=== PATIENT | male | born 1965 | race Caucasian/White ===

== ENCOUNTER 2022-01-11 17:09 | Emergency (ER) | payer SELFPAY ==
--- NOTE | 2022-01-11 17:15 | RT.EKG_ITS ---
APPROVED REPORT Exam: Resting ECG Reason for Exam: SOB Patient Location: E HR:94 bpm ECG Measurements Heart Rate 94 AXIS AR 135 P 27 QRSd 88 QRS -13 QT 336 T 68 QTc 420 Conclusion Sinus rhythm...normal P axis, V-rate 60- 99
[2022-01-11 17:21] VITALS: BP 148/87; PULSE 95; RESP 20; TEMP 38.3; O2SAT 99
--- NOTE | 2022-01-11 17:30 | DI.RAD_ITS ---
Exam(s) XR PORTABLE CHEST AP EXAM: XR PORTABLE CHEST AP CLINICAL HISTORY: PUI, Cough. TECHNIQUE: 2D digital imaging was performed. COMPARISON: No exams were available for comparison FINDINGS: Single AP portable view. Heart size is upper normal. The mediastinum is not widened. Lungs are clear. No infiltrates nor obvious pleural effusions. IMPRESSION: No acute pulmonary findings on this single AP portable view of the chest. DATA REPOSITORY: RADIATION DOSE DELIVERED:
--- NOTE | 2022-01-11 17:38 | W.ED.GENAD ---
Discharge Plan Disposition Patient Disposition: HOME Condition: Improving Discharge Details Chief Complaint: RespSymp Clinical Impression: COVID-19 Primary Care Provider: None,None ED Provider: Ortiz Angelo Home Meds and New Rx's Prescriptions: No Action No Known Home Meds Discharge Instructions Instructions: Viral Syndrome (ED), COVID-19 (Coronavirus Disease 2019) (ED) Additional Instructions: Home to rest this evening. Continue small, frequent sips of fluids to maintain hydration. Tylenol and ibuprofen as needed for aches, pains, fever Please take the Paxlovid twice daily for 5 days time until gone. Continue to self isolate and mask around others for 5 days time Medical Decision Making 56-year-old male presents with 3 days of cough, congestion, production of sputum. He said body ache, headache, sore throat and chills. He presents to ER with a temp of 38.3, pulse of 95, blood pressure 148/87 and oxygenating 99% on room air. Patient states he had single COVID immunization with [employer]. No known sick contact Concern for viral illness such as COVID versus pneumonia. Patient IV access established, given fluid bolus, acetaminophen and antiemetic. He is referred for blood work and a chest x-ray. COVID test is positive, remainder of laboratories are reassuring. Chest x-ray without focal infiltrate. Discussed with patient use of Paxlovid as I feel it is indicated and appropriate for him. He is willing to take the medication. He is stable and improved after fluids and medicines. He is appropriate for a trial of outpatient HPI General Mode of arrival: ambulatory. Date/Time Provider Initiated Documentation: 01/11/22 17:20. Limitations to Documentation: no limitations. Information obtained by: patient. History of Present Illness 56 year old M presents to the emergency department with the chief complaint of Cough, headache, sore throat for 3 days, described as moderate, and is localized to the head and chest. Patient reports no radiation. Patient started experiencing this day(s) and it has been intermittent. No relieving factors improve symptom(s), No exacerbating factors reported . Patient notes cough, fever/chills, headaches, loss of appetite and nausea/vomiting; denies chest pain, shortness of breath and syncope. Patient did receive the following treatments prior to arrival, none Related Data Home Medications Medication Instructions Recorded Confirmed Unknown [No Known Home Meds] 10/07/14 01/11/22 Allergies Allergy/AdvReac Type Severity Reaction Status Date / Time No Known Allergies Allergy Unverified 01/11/22 17:25 General Stated Complaint: RespSymp [place]: 2 Review of Systems Narrative: 6 systems reviewed and otherwise negative. PFSH All Active Problems (Updated 01/11/22 @ 19:33 by Ortiz Angelo MD) COVID-19 (Acute) Social History Smoking/Tobacco Use Status: Never Smoking risk assessment performed?: Yes Alcohol Intake: never Drug use: Never Substance use type: does not use Do you feel safe at home: Yes Do you feel safe in your relationship?: Yes Exam Narrative Exam Narrative: GEN: awake, alert, oriented 3. Pleasant, well groomed, interactive. HEAD: Normocephalic, atraumatic ENT: Mucous membranes dry, oropharynx unremarkable, External ear exam unremarkable EYES: PERRL, EOMI NECK: Full ROM, no DEVIN, no menigismus CHEST/RESP: Cough noted no wheeze/rhonchi/rales CARDIOVASCULAR: RRR, no murmur, rub abdulaziz. 2+ Rad pulse bilateral ABDOMEN: Soft, nontender, no mass. +Bowel sounds EXT: Full ROM, no edema, no rash Neuro: Grossly normal neurologic exam, conversant, interactive. Psych: Speech fluent, thoughts congruent, affect normal Course Vital Signs Vital signs: Vital Signs Temperature 38.3 C H 01/11/22 17:21 Pulse 95 H 01/11/22 17:21 Respiratory Rate 20 01/11/22 17:21 Blood Pressure 148/87 H 01/11/22 17:21 Pulse Oximetry 99 01/11/22 17:21 Temperature 38.3 C H 01/11/22 17:21 Temperature Source Temporal Artery Scan 01/11/22 17:21 Pulse 95 H 01/11/22 17:21 Respiratory Rate 20 01/11/22 17:21 Respiratory Effort 01/11/22 17:25 Blood Pressure 148/87 H 01/11/22 17:21 Blood Pressure Position Sitting 01/11/22 17:21 Pulse Oximetry 99 01/11/22 17:21 Oxygen Delivery Method Room Air 01/11/22 17:21 Oxygen Flow Rate 0 01/11/22 17:21
[2022-01-11] MEDS: Ondansetron 4 MG/2 ML VIAL IVP (17:57)
[2022-01-11] MEDS: ACETAMINOPHEN 1,000 MG/100 ML BTL 400 MG IVPB (17:57)
[2022-01-11] MEDS: Normal Saline 1,000 ML 1000 ML IV (17:58)
[2022-01-11 18:14] LABS: Influenza A PCR Negative (Negative); Influenza B PCR Negative (Negative); RSV PCR Negative (Negative)
[2022-01-11 18:18] LABS: ALT 26 U/L (16-63); AST 20 U/L (15-37); Albumin 3.5 g/dL (3.4-5.0); Alkaline Phosphatase 62 U/L (46-116); Anion Gap 9.7 mmol/L (3-11); BUN 20 mg/dL (7-18); Bilirubin, Total 0.6 mg/dL (0.2-1.0); CO2 25.3 mmol/L (21.0-32.0); CREATININE 1.3 mg/dL (0.70-1.30); Calcium 8.3 mg/dL (8.5-10.1); Chloride 105 mmol/L (98-107); Estimated GFR 63.68 (mL/min/1.73m2); Glucose 110 mg/dL (74-106); Sodium 140 mmol/L (136-145); Total Protein 6.8 g/dL (6.4-8.2)
[2022-01-11 18:19] LABS: COVID-19 PCR Positive (Negative); Source Nasopharynx
[2022-01-11 18:22] LABS: Abs Immature Grans 0.03 10^3/uL (0.0-0.06); Absolute Basophil Count 0.01 10^3/uL (0.0-0.2); Absolute Lymphocyte Count 0.65 10^3/uL (1.2-3.4); Absolute Monocyte Count 0.42 10^3/uL (0.1-0.8); Absolute Neutrophil Count 5.67 10^3/uL (1.2-6.7); Basophils % 0.1; HCT 43.2 % (40.0-50.0); HGB 14.3 g/dL (13.5-17.5); Immature Grans % 0.4; Lymphocytes % 9.6; MCH 28.4 pg (27.0-33.0); MCHC 33.1 % (32.0-36.0); MCV 86 fL (80-95); MPV 10.3 fL (8.0-11.0); Monocytes % 6.2; Neutrophils % 83.7; Platelet Count 154 10^3/uL (130-400); RBC 5.04 10^6/uL (4.36-5.78); RDW 13.6 % (11.8-14.1); RDW-SD 42.7 fL; WBC 6.78 10^3/uL (4.4-10.8)
--- NOTE | 2022-01-11 18:36 | DI.VRAD_ITS ---
PROCEDURE INFORMATION: Exam: XR Chest Exam date and time: 01/11/2022 6:03 PM Age: 56 years old Clinical indication: Cough TECHNIQUE: Imaging protocol: Radiologic exam of the chest. Views: 1 view. COMPARISON: No relevant prior studies available. FINDINGS: Lungs: Unremarkable. No consolidation. Pleural spaces: Unremarkable. No pleural effusion. No pneumothorax. Heart/Mediastinum: Unremarkable. No cardiomegaly. Bones/joints: Unremarkable. IMPRESSION: No acute findings. Dictated and Authenticated by: Rahel Boyer MD. Ordering:MAT Alcantar MD
== END 2022-01-11 19:06 | disposition home or self-care (01) ==
PROVIDERS: Emergency Provider Emergency Medicine
DX: U07.1 COVID-19 (principal)
CPT/HCPCS: 80053; 87637; 93005; 96361; 96374; 96375; 99284; 71045; 85025; 93010; J0131; J2405